=== PATIENT | female | born 1965 | race Caucasian/White ===

== ENCOUNTER 2023-08-23 14:32 | Emergency (ER) | payer OTHER ==
[2023-08-23 14:53] VITALS: TEMP 98.5; O2SAT 98
[2023-08-23] MEDS ORDERED: solu-CORTEF 250MG ONE (15:19)
[2023-08-23] MEDS ORDERED: Rocephin 1000 MG INJ ONE (15:19)
[2023-08-23] MEDS ORDERED: XYLOCAINE 1% HCL 20 ML MDV ONE (15:20)
[2023-08-23] MEDS: Rocephin 1000 MG INJ IM ONE (15:21)
[2023-08-23] MEDS: solu-CORTEF 250MG IM STA (15:21)
--- NOTE | 2023-08-23 15:23 | ERPHSYRPT ---
- History of Present Illness Time Seen by Provider: 08/23/23 15:18 Source: patient Exam Limitations: no limitations Patient Subjective Stated Complaint: head congestion and right ear pain Triage Nursing Assessment: Patient reports to ER with c/o of head congestion and right ear pain. Patient able to ambulate back to room per self without assistive device. Patient denies feeling off balance and dizziness. Patient is alert and oriented x 3. Patient reports that she has been sick with a productive cough and head congestion x 3 weeks but over the last several days she has been having pain and hearing difficulty in her right ear. No drainage present from the right ear. Patient rating pain 8/10 at this time and denies taking any medication prior to coming to ER. Patient coughing upon exam with thick yellow sputum. Patient afebrile at this time and denies any fever over the last 72 hours. Physician History: Patient is 58-year-old female without any significant past medical history have complaining of sinus congestion both ear pain sore throat headache for last 2 weeks. She was seen in the acute care clinic and where she was tested for flu RSV and COVID and they all were negative. When last 3 to 4 days she developed so much congestion in her nose and sinus that she had a hard time breathing through the nose. She denies any shortness of breath or chest pain fever chills nausea or vomiting. She is complaining of severe headache in the sinus area as well as pain in the both years. She denies any difficulty in swallowing. Timing/Duration: weeks (2-3 weeks) ENT Location: ear (R), ear (L), nose, throat, facial Prearrival Treatment: no prearrival treatment Associated Symptoms: ear pain (R), ear pain (L), facial pain/swelling, headache, nasal congestion/drainage, No cough, No fever, No chills, No ear drainage Allergies/Adverse Reactions: lisinopril Allergy (Verified 08/23/23 14:40) Sulfa (Sulfonamide Antibiotics) Allergy (Verified 08/23/23 14:40) Home Medications: Loratadine 10 mg [Claritin 10 mg] 10 mg PO DAILY 08/23/23 [History] Travel Risk - International Travel Have you traveled outside of the country in past 3 weeks: No - Coronavirus Screening Are you exhibiting any of the following symptoms?: No - Vaccine Status Have you recieved a Covid-19 vaccination: Yes [employer]: Pfizer - Vaccination Dates Date of 2cond Vaccination (if applicable): unk - Review of Systems Constitutional: No Fever, No Chills Eyes: No Symptoms Ears, Nose, & Throat: Ear Pain, Nose Congestion, Sinus Drainage Respiratory: No Cough, No Dyspnea Cardiac: No Chest Pain, No Edema, No Syncope Abdominal/Gastrointestinal: No Abdominal Pain, No Nausea, No Vomiting, No Diarrhea Genitourinary Symptoms: No Dysuria Musculoskeletal: No Back Pain, No Neck Pain Skin: No Rash Neurological: No Dizziness, No Focal Weakness, No Sensory Changes Psychological: No Symptoms Endocrine: No Symptoms All Other Systems: Reviewed and Negative - Past Medical History Pertinent Past Medical History: No Neurological History: No Pertinent History ENT History: No Pertinent History Cardiac History: No Pertinent History Respiratory History: No Pertinent History Endocrine Medical History: No Pertinent History Musculoskeletal History: No Pertinent History GI Medical History: No Pertinent History History: No Pertinent History Psycho-Social History: No Pertinent History Female Reproductive Disorders: No Pertinent History - Past Surgical History Past Surgical History: Yes Neuro Surgical History: No Pertinent History Cardiac: No Pertinent History Respiratory: No Pertinent History Gastrointestinal: No Pertinent History Genitourinary: Kidney Surgery Musculoskeletal: No Pertinent History Female Surgical History: No Pertinent History - Social History Smoking Status: Never smoker Exposure to second hand smoke: Yes Drug Use: none Patient Lives Alone: No - Nursing Vital Signs Nursing Vital Signs: Initial Vital Signs Temperature 98.5 F 08/23/23 14:41 Pulse Rate 99 H 08/23/23 14:41 Respiratory Rate 19 08/23/23 14:41 Blood Pressure 170/112 08/23/23 14:41 O2 Sat by Pulse Oximetry 98 08/23/23 14:41 Pain Scale Pain Intensity 8 - Physical Exam General Appearance: no apparent distress, alert Eye Exam: bilateral eye: PERRL, EOMI Ear Exam: bilateral ear: TM red Nasal Exam: sinus tenderness Throat Exam: pharynx normal, moist mucus membranes, No tonsillar exudate Neck Exam: supple Cardiovascular/Respiratory Exam: normal breath sounds, regular rate/rhythm Abdominal Exam: non-tender, soft Neurologic Exam: alert, oriented x 3, sensation nml, No motor deficits Skin Exam: normal color, warm, dry SpO2: 98 - Course Nursing assessment & vital signs reviewed: Yes Ordered Tests: Medication Summary Discontinued Medications Generic Name Dose Route Start Last Admin Trade Name Kiki PRN Reason Stop Dose Admin Ceftriaxone Sodium 1,000 mg 08/23/23 15:12 Ceftriaxone Sodium 1000 Mg Inj Vial IM 08/23/23 15:13 STAT ONE Hydrocortisone Sodium Succinate 250 mg 08/23/23 15:11 Hydrocortisone Sod Succinate 250 Mg/Vial Vial IM 08/23/23 15:12 Q6H STA - Progress Progress: unchanged Counseled pt/family regarding: diagnosis, need for follow-up Medical Desision Making - Diagnostic Testing Diagnostic test were ordered, analyzed, and reviewed by me: No - Risk of complications Minimal Risk: Minimal risk of morbidity - Departure Departure Disposition: Home Clinical Impression: Sinus headache Maxillary sinusitis, acute Qualifiers: Recurrence: non-recurrent Qualified Code(s): J01.00 - Acute maxillary sinusitis, unspecified Otitis media of both ears Qualifiers: Otitis media type: serous Chronicity: acute Recurrence: non-recurrent Qualified Code(s): H65.03 - Acute serous otitis media, bilateral Condition: Stable Critical Care Time: No Referrals: DOCTOR,NO FAMILY [Primary Care Provider] - Follow up/PCP as directed Instructions: Sinusitis, Adult (DC), Sinus Headache (DC) Additional Instructions: Discharge/Care Plan ABRAM WILLIAMSON was seen on 08/23/23 in the Emergency Room. The patient was counseled regarding Diagnosis,Lab results, Imaging studies, need for follow up and when to return to the Emergency Room. Prescriptions given: Discharge Note I have spoken with the patient and/or caregivers. I have explained the patient's condition, diagnosis and treatment plan based on the information available to me at this time. I have answered the patient's and/or caregiver's questions and addressed any concerns. The patient and/or caregivers have as good understanding of the patient's diagnosis, condition and treatment plan as can be expected at this point. The vital signs have been stable. The patient's condition is stable and appropriate for discharge from the emergency department. The patient will pursue further outpatient evaluation with the primary care physician or other designated or consulting physician as outlined in the discharge instructions. The patient and/or caregivers are agreeable to this plan of care and follow-up instructions have been explained in detail. The patient and/or caregivers have received these instruction. The patient/and or caregivers are aware that any significant change in condition or worsening of symptoms should prompt an immediate return to this or the closest emergency department or call 911. ABRAM WILLIAMSON was seen on 08/23/23 n the Emergency Room. At that time you were treated for an emergent condition, during your visit Laboratory, Radiology and/or other procedures may have been ordered. It is very important that you follow-up with your Primary Care Physician NO FAMILY DOCTOR within the next 24- 48 hours to review your Emergency Room visit and the final results of testing that was ordered. Some test results such as Urine Cultures, Blood Cultures, and other cultures if ordered will not be finalized for 24-48 hours. If you do not have a Primary Care Provider please call the medical records department at [phone] to obtain a copy of your results or you may sign into our patient portal to obtain these results by visiting us @ [email or web address] and completing the following steps: 1. Click on the Patient Portal link 2. Click the Patient Self Enrollment Link to complete the enrollment form and entering your 3. Once the enrollment form is completed you will receive an email with a temporary ID and password at the email address you provided. 4. Next choose a user name and password. Your user name must be at least 4 characters long and your password must be at least 4 characters long. 5. Choose a security question from the list and provide your answer to the question. If you already have signed into the Health Portal you may access your Health Care Information 02/02 by the following steps: 1. Login to our website @ [email or web address] 2. Enter your original user name and password. FAQS The [facility] Health Portal is an online tool that contains your Lab Results, Radiology Reports, Visit History, Discharge Instructions and Health Summary Lab and Radiology Results will not be available for 72 hours on the portal. The Portal is a secure site, passwords are encryted and URLs are re-written so they cannot be copied and pasted. You and authorized family members are the only ones who can access your Portal. Also there is a timeout feature that protects your information if you leave the Portal page open. If you have technical difficulty please use the Contact Us link on the page this will allow you to submit any questions you have regarding the Portal or you may contact the Medical Record Department at [phone] ext [phone]. Prescriptions: Azithromycin [Azithromycin 250 mg Pack] 250 mg PO UD #6 tablet Methylprednisolone Packet [Medrol Dosepack] 4 mg PO UD #21 packet
[2023-08-23 15:49] VITALS: BP 150/99; PULSE 80; RESP 17
== END 2023-08-23 15:54 | disposition home or self-care (01) ==
LOC: ED 14:32
DX: J01.00 Acute maxillary sinusitis, unspecified (principal); H65.03 Acute serous otitis media, bilateral; R51.9 Headache, unspecified; R09.81 Nasal congestion; H92.03 Otalgia, bilateral; J02.9 Acute pharyngitis, unspecified
CPT/HCPCS: 96372; 99283; J0696; J1720